=== PATIENT | male | born 1945 | race Caucasian/White ===

== ENCOUNTER 2017-03-03 07:38 | Day surgery (SDC) | payer MEDICARE, OTHER ==
--- NOTE | ~2017-03-03 | OP ---
Record Of [facility] [address] [place]. [address] NAME: JAYLENE NORTON JR : 49 STATUS : REG [facility] [place] PAT#: [id number] AGE: 71 ADM/REG DATE : 03/03/17 MR#: [id number] REPORT SERV DATE: 03/03/17 DICTATED BY: SAMMY LYN JR. DATE: 03/03/17 REPORT STATUS : Draft TRANSCRIBED BY: ADAMS DATE: 03/03/17 DATE OF PROCEDURE: 03/03/2017 SURGEON: Sammy Lyn M.D. PREOPERATIVE DIAGNOSIS: Scrotal sebaceous cyst. POSTOPERATIVE DIAGNOSIS: Scrotal sebaceous cyst. PROCEDURE PERFORMED: Excision of scrotal sebaceous cyst. COMPLICATIONS: None. CONSULTATIONS: None. ANESTHESIA: General with a laryngeal mask airway. SPECIMENS: Scrotal sebaceous cyst. DRAINS: None. ESTIMATED BLOOD LOSS: 5 mL. INDICATION: Mr. Norton is a 71-year-old gentleman, who I saw in the office yesterday with a scrotal sebaceous cyst that has been causing him problems for several months. At this point in time, it was not inflamed and he requested it to be removed as it seems to continue to give him issues with inflammation every few months. PROCEDURE IN DETAIL: After the patient was identified and proper informed consent was obtained, he was taken to the operating room. General anesthesia was performed without complication using a laryngeal mask airway. He was then prepped and draped in normal sterile fashion in the frog-leg position. A 2-0 silk suture was placed through the sebaceous cyst and the skin overlying the cyst was incised in an elliptical fashion. The cyst was then dissected out of the scrotal tissue using Metzenbaum scissors and removed. Electrocautery was used for hemostasis. I closed the scrotum in two layers, one 2-0 chromic suture in the deep tissues and then a 3-0 chromic nonlocking running suture in the skin. Fluffs and a scrotal support were used for dressing. I also irrigated the wound prior to closure. SUZANNE/ADAMS Sammy Lyn Jr., M.D. Record Of [facility] [address] [place]. [address] NAME: JAYLENE NORTON JR : 49 STATUS : REG [facility] [place] PAT#: [id number] AGE: 71 ADM/REG DATE : 03/03/17 MR#: [id number] REPORT SERV DATE: 03/03/17 DICTATED BY: SAMMY YLN JR. DATE: 03/03/17 REPORT STATUS : Draft TRANSCRIBED BY: MODL DATE: 03/03/17 / [id number] CC: Brenda Stovall Jr., M.D.
[~2017-03-03 07:38] MED LIST: ALTA2.5 PO; ASAB PO; BACDS PO; CLEOCIN300 MG PO; FLORASTOR250 MG PO; FORTAMET500 MG PO; IPRA17AE INH; LIPITOR40 PO; LORTAB 5 PO; PROVHFA INH; STERAPRED DS10 MG; T3 PO; TOPXL25 PO
[2017-03-03 08:12] LABS: HEMATOCRIT 54.3 % (40.0-51.0); HEMOGLOBIN 18.1 g/dL (13.6-17.8)
[2017-03-03 08:20] LABS: BUN (BLOOD UREA NITROGEN) 19 MG/DL (6-23); CALCIUM, SERUM 9.5 MG/DL (8.5-10.4); CHLORIDE, SERUM 105 MMOL/L (96-112); CO2 (CARBON DIOXIDE) 28 MMOL/L (24-34); CREATININE 1.06 MG/DL (0.70-1.30); GFR AFRICAN AMERICAN 83 ML/MIN (>=60); GFR NON AFRICAN AMERICAN 71 ML/MIN (>=60); POTASSIUM, SERUM 4.3 MMOL/L (3.5-5.3); SODIUM, SERUM 139 MMOL/L (135-148)
[2017-03-03 08:23] LABS: GLUCOSE, SERUM 124 MG/DL (60-99)
== END 2017-03-03 13:07 | disposition home or self-care (01) ==
LOC: SDC 07:38
PROVIDERS: Urology
PROC: 0VB50ZZ Excision of Scrotum, Open Approach (ICD-10-PCS; 2017-03-03)
PROC: 0HQAXZZ Repair Inguinal Skin, External Approach (ICD-10-PCS; principal; 2017-03-03 10:00)
DX: L72.8 Other follicular cysts of the skin and subcutaneous tissue (principal); I10 Essential (primary) hypertension; J44.9 Chronic obstructive pulmonary disease, unspecified; E78.5 Hyperlipidemia, unspecified; E11.9 Type 2 diabetes mellitus without complications; F17.210 Nicotine dependence, cigarettes, uncomplicated; Z98.890 Other specified postprocedural states; Z88.1 Allergy status to other antibiotic agents
CPT/HCPCS: 80048; 85014; 85018; 88304; 93005; A9270-GY; J0694; J2250; J2370; J2405; J3010